=== PATIENT | male | born 1945 | race Caucasian/White ===

== ENCOUNTER 2019-01-22 05:44 | Inpatient (IN) | payer OTHER ==
[2019-01-15 14:28] VITALS: BMI 34.8
[2019-01-22] MEDS ORDERED: MIDAZOLAM HCL 2 MG/2 ML SINGLE DOSE VIAL ONE (06:56)
[2019-01-22] MEDS ORDERED: BUPIVACAINE HCL/PF 0.5% (5 MG/ML) 30 ML VIAL IJ ONE (06:56)
[2019-01-22] MEDS ORDERED: CEFAZOLIN 2 GM/D5W 2 GM/50 ML ML IVPB ONE (07:14)
[2019-01-22] MEDS ORDERED: CELECOXIB 200 MG CAPSULE PO ONE (07:14)
[2019-01-22] MEDS ORDERED: oxyCODONE HCL 10 MG SUSTAINED ACTING TABLET PO ONE (07:14)
[2019-01-22] MEDS ORDERED: TRANEXAMIC ACID 1000 MG/10 ML VIAL IVPUSH ONE (07:15)
[2019-01-22] MEDS ORDERED: BUPIVICAINE 0.25%/MORPH PF/KETOROLAC - 51ML DISP.SYRINGE IA ONE ×2 (07:15→09:26)
[2019-01-22] MEDS ORDERED: PANTOPRAZOLE 40 MG TABLET (FP) PO ONE (07:15)
[2019-01-22] MEDS ORDERED: ceFAZolin SODIUM 1 GM VIAL ONE ×2 (07:20→08:33)
[2019-01-22] MEDS ORDERED: VANCOMYCIN 1,000 MG VIAL (RESTRICTED TO ID ONLY) ONE (07:20)
[2019-01-22] MEDS ORDERED: SUCCINYLCHOLINE CHLORIDE 200 MG/10 ML SYRINGE ONE (07:26)
[2019-01-22] MEDS ORDERED: PROPOFOL 20 ML ONE ×4 (07:26→10:40)
[2019-01-22] MEDS ORDERED: ePHEDrine SULFATE 50 MG/1 ML AMPULE ONE (07:26)
[2019-01-22] MEDS ORDERED: BUPIVACAINE HCL/PF 0.5% (5MG/ML) 10 ML VIAL ONE (07:27)
[2019-01-22] MEDS ORDERED: oxyCODONE HCL 5 MG TABLET PO PRN (07:34)
[2019-01-22] MEDS ORDERED: ACETAMINOPHEN 1000 MG/100 ML VIAL (NON FORMULARY) IVPB ONE ×2 (07:34→11:46)
--- NOTE | 2019-01-22 07:35 | HP ---
Admitting History and Physical - Admission Chief Complaint: right hip osteoarthritis x years History of Present Illness: 73 year old male presents in regard to their right hip. Long-standing history of right hip osteoarthritis. Patient complains of pain, limited range of motion , difficulty ambulating, and difficulty with activities of daily living. Patient has failed conservative treatment options including PO medications, activity modification, injections, and exercise programs. At this point, patient like to proceed with surgical intervention, right total hip arthroplasty MAKOplasty. History Source: Patient - Past Medical History Cardiovascular: Yes: HTN, Hyperlipdemia - Past Surgical History Additional Past Surgical History: See written history & physical. - Smoking History Smoking history: Former smoker Have you smoked in the past 12 months: No If you are a former smoker, when did you quit?: 30 y ago - Alcohol/Substance Use Hx Alcohol Use: Yes (2xweek) Home Medications - Allergies Allergies/Adverse Reactions: Allergies Allergy/AdvReac Type Severity Reaction Status Date / Time No Known Allergies Allergy Verified 01/15/19 14:28 - Home Medications Home Medications: Ambulatory Orders Glucosa Lr 2Kcl/Chondroitin Lr [Glucosamine & Chondroitin Cap] 1 each PO DAILY 01/15/19 Lisinopril/Hydrochlorothiazide [Lisinopril-Hctz 20-25 mg Tab] 1 each PO DAILY Metoprolol Succinate [Toprol Xl -] 200 mg PO DAILY 01/15/19 Multivitamin [Multiple Vitamins] 1 each PO DAILY 01/15/19 Simvastatin [Zocor -] 40 mg PO DAILY 01/15/19 Lisinopril 20 mg PO DAILY 01/22/19 Review of Systems - Review of Systems Musculoskeletal: reports: Decreased ROM (right hip), Joint Pain (right hip) Physical Examination Vital Signs: Vital Signs Temperature 98.6 F 01/22/19 06:49 Pulse Rate 55 L 01/22/19 06:49 Respiratory Rate 16 01/22/19 06:49 Blood Pressure 136/87 01/22/19 06:49 O2 Sat by Pulse Oximetry (%) Constitutional: Yes: Well Nourished, No Distress Eyes: Yes: Conjunctiva Clear HENT: Yes: Atraumatic, Normocephalic Neck: Yes: Supple Cardiovascular: Yes: Regular Rate and Rhythm Respiratory: Yes: Regular Gastrointestinal: Yes: Hemorrhoids ...Rectal Exam: Yes: Deferred Musculoskeletal: Yes: Joint Stiffness (right hip) Assessment/Plan 73 year old male presents in regard to their right hip. Long-standing history of right hip osteoarthritis. Patient complains of pain, limited range of motion , difficulty ambulating, and difficulty with activities of daily living. Patient has failed conservative treatment options including PO medications, activity modification, injections, and exercise programs. At this point, patient like to proceed with surgical intervention, right total hip arthroplasty MAKOplasty. Pros, cons, risks, benefits, and alternatives of a right total hip arthroplasty MAKOplasty were discussed with the patient at length. Patient confirms their understanding and consents to proceed with a right total hip arthroplasty MAKOplasty.
[2019-01-22] MEDS ORDERED: ONDANSETRON 4 MG/2 ML VIAL IVPUSH PRN ×2 (07:40→11:48)
[2019-01-22] MEDS ORDERED: LACTATED RINGERS SOLUTION 1,000 ML IV SCH ×2 (07:45→12:00)
[2019-01-22] MEDS ORDERED: TRANEXAMIC ACID 1000 MG/10 ML VIAL ONE (08:33)
[2019-01-22] MEDS ORDERED: DEXAMETHASONE SOD PHOSPHATE 4 MG/1 ML VIAL ONE (09:03)
[2019-01-22] MEDS ORDERED: ONDANSETRON 4 MG/2 ML VIAL ONE (09:03)
[2019-01-22] MEDS ORDERED: KETOROLAC TROMETHAMINE 30 MG/1 ML VIAL ONE (11:34)
[2019-01-22] MEDS ORDERED: traMADol HCL 50 MG TABLET ONE (11:35)
[2019-01-22] MEDS ORDERED: ACETAMINOPHEN INJECTION 100 ML IVPB ONE (11:35)
[2019-01-22] MEDS: KETOROLAC TROMETHAMINE 30 MG/1 ML VIAL IVPUSH SCH ×3 (11:40→23:39)
--- NOTE | 2019-01-22 11:44 | OP ---
Operative Note - Note: Operative Date: 01/22/19 Pre-Operative Diagnosis: right hip OA Operation: right KOBY YANET Post-Operative Diagnosis: Same as Pre-op Surgeon: Delvis Puente Professor Of Theatre: Carmen Barlow Anesthesia: Spinal Estimated Blood Loss (mls): 200
[2019-01-22] MEDS ORDERED: MAGNESIUM HYDROX 2400MG/30ML ORAL SUSPENSION 30 ML CUP PO PRN (11:48)
[2019-01-22] MEDS ORDERED: MAG HYDROX/AL HYDROX/SIMETH 30 ML UNIT-DOSE CUP PO PRN (11:48)
[2019-01-22] MEDS: traMADol HCL 50 MG TABLET PO SCH ×3 (11:50→23:40)
[2019-01-22] MEDS ORDERED: ACETAMINOPHEN 325 MG TABLET (FP) PO SCH (14:00)
[2019-01-22] MEDS: ACETAMINOPHEN 325 MG TABLET (FP) PO SCH ×2 (17:57→23:41)
[2019-01-22] MEDS: CEFAZOLIN 2 GM/D5W 2 GM/50 ML ML IVPB SCH (17:57)
[2019-01-22] MEDS ORDERED: DEXAMETHASONE SOD PHOSPHATE 10 MG/1 ML VIAL IVPB ONE (20:00)
[2019-01-22] MEDS: oxyCODONE HCL 10 MG SUSTAINED ACTING TABLET PO SCH (21:37)
[2019-01-22] MEDS: ATORVASTATIN CA 20 MG TABLET (FP) PO SCH (21:37)
[2019-01-22] MEDS: SENNOSIDES/DOCUSATE COMBO (SENNA PLUS) TABLET (UD) PO SCH (21:37)
[2019-01-22] MEDS: GABAPENTIN 300 MG CAPSULE (FP) PO SCH (21:37)
[2019-01-22] MEDS: ASCORBIC ACID 500 MG TABLET (FP) PO SCH (21:37)
[2019-01-22] MEDS ORDERED: CELECOXIB 200 MG CAPSULE PO SCH (22:00)
[2019-01-23] MEDS: CEFAZOLIN 2 GM/D5W 2 GM/50 ML ML IVPB SCH (01:25)
[2019-01-23] MEDS: KETOROLAC TROMETHAMINE 30 MG/1 ML VIAL IVPUSH SCH (05:28)
[2019-01-23] MEDS: traMADol HCL 50 MG TABLET PO SCH ×3 (05:28→17:38)
[2019-01-23] MEDS: ACETAMINOPHEN 325 MG TABLET (FP) PO SCH ×3 (05:29→17:39)
[2019-01-23 07:22] LABS: HEMATOCRIT 35.4 % (35.4-49); HEMOGLOBIN 11.9 GM/dl (11.7-16.9); MCH 31.7 pg (25.7-33.7); MCHC 33.6 g/dl (32.0-35.9); MEAN CELL VOLUME 94.5 fl (80-96); MEAN PLT VOLUME 8.7 fl (7.5-11.1); PLATELET COUNT 195 K/MM3 (134-434); RBC 3.74 M/mm3 (4.00-5.60); RDW 11.8 % (11.9-15.9); WHITE BLOOD COUNT 15.3 K/mm3 (4.0-10.8)
[2019-01-23 07:57] LABS: CALCIUM 8.5 mg/dl (8.5-10); CREATININE 2.1 mg/dl (0.55-1.3); POTASSIUM 4.5 mmol/L (3.5-5.1)
[2019-01-23] MEDS: oxyCODONE HCL 5 MG TABLET PO PRN (08:30)
[2019-01-23] MEDS: ASPIRIN 325 MG TABLET PO SCH (08:30)
[2019-01-23] MEDS: GABAPENTIN 300 MG CAPSULE (FP) PO SCH ×2 (09:34→21:35)
[2019-01-23] MEDS: ASCORBIC ACID 500 MG TABLET (FP) PO SCH ×2 (09:35→21:35)
[2019-01-23] MEDS: HYDROCHLOROTHIAZIDE 25 MG TABLET (FP) PO SCH (09:35)
[2019-01-23] MEDS: SENNOSIDES/DOCUSATE COMBO (SENNA PLUS) TABLET (UD) PO SCH ×2 (09:36→21:35)
[2019-01-23] MEDS: oxyCODONE HCL 10 MG SUSTAINED ACTING TABLET PO SCH ×2 (09:36→21:35)
[2019-01-23] MEDS: PANTOPRAZOLE 40 MG TABLET (FP) PO SCH (09:47)
[2019-01-23] MEDS ORDERED: PATIENT'S OWN MEDICATION (NON-FORMULARY) (Lisinopril/Hydrochlorothiazide [Lisinopril-Hctz PO SCH (10:00)
[2019-01-23] MEDS: LISINOPRIL 20 MG TABLET (FP) PO SCH (10:00)
[2019-01-23] MEDS ORDERED: LISINOPRIL 20 MG TABLET (FP) PO SCH (10:00)
[2019-01-23] MEDS: MULTIVITAMINS (DAILY MVI) TABLET (FP) PO SCH (10:00)
--- NOTE | 2019-01-23 12:14 | PN ---
Progress Note (short form) - Note Progress Note: Anesthesia postop note POD#1, S/P Right YANET under spinal and para vertebral block. Pat seen and examined. VSS. PT today. Pain 2-05/31. No apparent post anesthesia complications.
[2019-01-23] MEDS ORDERED: LACTATED RINGERS SOLUTION 1,000 ML IV SCH (12:45)
--- NOTE | 2019-01-23 19:53 | PN ---
Progress Note (short form) - Note Progress Note: Pt seen and examined. Doing well. Walked 1000+ feet. AVSS Selected Entries 01/23/19 01/23/19 01/23/19 05:55 08:17 13:57 Temperature 98.0 F 97.7 F Pulse Rate 68 55 L Respiratory 18 19 Rate Blood Pressure 136/57 L 113/53 L O2 Sat by Pulse 98 97 Oximetry (%) Oxygen Delivery Room Air Room Air Method Laboratory Tests 01/23/19 01/23/19 07:08 07:08 WBC 15.3 H Hgb 11.9 Hct 35.4 Plt Count 195 Sodium 133 L Potassium 4.5 Chloride 100 Carbon Dioxide 22 Anion Gap 11 BUN 37.0 H Creatinine 2.1 H Est GFR (CKD-EPI)AfAm 35.63 Est GFR (CKD-EPI)NonAf 30.74 Random Glucose 189 H Calcium 8.5 Gen: NAD RLE: c/d/i, NVID A/P s/p R KOBY HOLT PT/OOB D/C home in AM
--- NOTE | 2019-01-23 20:03 | DS ---
Physical Examination Vital Signs: Vital Signs Temperature 97.7 F 01/23/19 13:57 Pulse Rate 55 L 01/23/19 13:57 Respiratory Rate 19 01/23/19 13:57 Blood Pressure 113/53 L 01/23/19 13:57 O2 Sat by Pulse Oximetry (%) 97 01/23/19 13:57 Labs: CBC, BMP 01/23/19 07:08 01/23/19 07:08 Discharge Summary Problems reviewed: Yes Reason For Visit: UNILATERAL PRIMARY OSTEOARTHRITIS, RIGHT HIP Current Active Problems Osteoarthritis of right hip (Acute) Procedures: Principal: right KOBY YANET Hospital Course: Admitted for elective surgery. Procedure performed without complications. Pt received postoperative antibiotic prophylaxis and DVT ppx. Ambulated with physical therapy. Stable for discharge home with outpatient followup. Condition: Stable - Instructions Diet, Activity, Other Instructions: Dr Puente - Hip Replacement Instructions Keep the Aquacel dressing on until removed by Dr. Puente in 10-14 days - it is antibacterial and waterproof and you can shower with it on. Call the office for a follow-up appointment with Dr. Puente in 10-14 days. [phone] Take one Aspirin 325mg daily for 6 weeks to prevent blood clots in your legs. Take one Pantoprazole 40mg daily for 6 weeks to protect against heartburn and ulcers. Take Cephalexin (antibiotic) 3x/day for 10 days to help prevent skin infection. Take a multivitamin, stool softener and extra Vitamin C supplement daily. For pain: *Mild pain (1-3/10): Take 1 Tramadol tablet every 4 hours as needed. Moderate pain (4-6/10): Take 1 Tramadol tablet and 1 Percocet tablet every 4 hours as needed. Severe pain (7-10/10): Take 1 Tramadol tablet and 2 Percocet tablets every 4 hours as needed. Activity: You can put as much weight on the operative leg as you want. For the first 6 weeks, all you need to do is walk around the house, go up/down stairs, and sit down/get up. After 6 weeks when everything is healed (and bone has grown into the implant) you will be sent for more intensive outpatient physical therapy. Always use a walker or cane for balance and to prevent falls. Expect to see swelling / bruising from the operative site all the way down to your toes. Wear the Compression stocking on the operative side during the day to minimize how much swelling there is in your foot/ankle. Don't wear the stocking at night. You don't have to wear the stocking on the other side. Disposition: VNS/HOME HEALTH CARE - Home Medications Comprehensive Discharge Medication List: Ambulatory Orders Glucosa Lr 2Kcl/Chondroitin Lr [Glucosamine & Chondroitin Cap] 1 each PO DAILY 01/15/19 Lisinopril/Hydrochlorothiazide [Lisinopril-Hctz 20-25 mg Tab] 1 each PO DAILY Metoprolol Succinate [Toprol XL -] 200 mg PO DAILY 01/15/19 Multivitamin [Multiple Vitamins] 1 each PO DAILY 01/15/19 Simvastatin [Zocor -] 40 mg PO DAILY 01/15/19 Lisinopril 20 mg PO DAILY 01/22/19 Ascorbic Acid [Vitamin C -] 500 mg PO BID tablet 01/23/19 Aspirin [ASA -] 325 mg PO DAILY@0800 tablet 01/23/19 Cephalexin Monohydrate [Keflex -] 500 mg PO TID #30 capsule 01/23/19 Oxycodone HCl/Acetaminophen [Percocet 5-325 mg Tablet] 1 - 2 tab PO Q4H PRN #60 tablet MDD 10 01/23/19 Pantoprazole Sodium [Protonix -] 40 mg PO DAILY #40 tablet.ec 01/23/19 Sennosides/Docusate Sodium [Pericolace -] 2 tablet PO BID tablet 01/23/19 traMADol HCL [Ultram -] 50 mg PO Q4H PRN #42 tablet MDD 6 01/23/19
--- NOTE | 2019-01-23 21:04 | SPEC ---
DATE OF OPERATION: 01/22/2019 PREOPERATIVE DIAGNOSIS: Right hip osteoarthritis. POSTOPERATIVE DIAGNOSIS: Right hip osteoarthritis. PROCEDURE: Right total hip replacement with Makoplasty robotic navigation. ATTENDING: Delvis Puente MD SOCIAL MEDIA DESIGNER: CARLITO Wu ANESTHESIA: Spinal plus sedation. ESTIMATED BLOOD LOSS: 200 mL COMPLICATIONS: None. DISPOSITION: The patient was transferred to the PACU in stable condition. IMPLANTS USED: 1. Zachery Accolade II, size 9 femoral component. 2. Zachery Trident II, 58 mm acetabular component with 40- and 25-mm acetabular screws. 3. MDMA bipolar hip bowl and liner. INDICATIONS: This is 73-year-old male who presents to the office complaining of severe right hip pain. He was seen and examined by Dr. Puente and was diagnosed with severe right hip osteoarthritis. The patient was initially treated conservatively but failed nonoperative management. He was therefore indicated for a right total hip replacement. The risks, benefits and alternatives to the procedure were explained to the patient in great detail and he elected to proceed with the surgery. On the day of surgery, the patient was taken to the operating room and placed on the OR table. Spinal anesthesia was administered by the anesthesiologist. The patient was then positioned in the lateral decubitus position on the table and all bony prominences were padded. An axillary roll was placed. The operative hip was then prepped and draped in the usual sterile fashion and intravenous antibiotics were given for infection prophylaxis. A surgical time-out was then performed with the team, and the patients identity, procedure, side, availability of implants, and the administration of antibiotics were confirmed. An approximately 15-cm longitudinal incision was made through the skin centered on the greater trochanter of the hip. This dissection was carried down through the subcutaneous tissues to the deep fascia. This fascia was then incised and a Cobra was placed around the inferior femoral neck. Electrocautery was used to reflect the anterior 40% of the gluteus medius and minimus starting at the musculotendinous junction and leaving a cuff for closure. This was reflected to reveal the capsule of the hip joint. An anterior capsulectomy was performed and the femoral head and neck were visualized. Grade 4 changes were noted diffusely throughout the joint. At this point, three small stab incisions were made superior to the main incision along the iliac crest. Three self-drilling Steinmann pins were then placed and the Eulogio pelvic array was attached. Reference points on the limb were then entered into the robotic device and the limb length deficiency, offset, and femoral neck resection level were then calculated by the software. The hip was then dislocated with traction and external rotation. An oscillating saw was used to make the femoral neck cut at the level previously templated, and the femoral head was removed. Attention was then turned to the acetabulum. Retractors were then placed around the acetabulum and the labrum was removed. An acetabular checkpoint pin and the Going software were used to register the contours of the acetabulum. The acetabulum was then reamed in a single stage to the preoperatively templated size using the Going robotic arm. The appropriately sized cup was then impacted and had solid fixation as well as the preset inclination and version of 40 and 20 degrees, respectively. A polyethylene liner was then placed in the cup. Attention was then turned back to the femur, which was externally rotated for improved visualization. A femoral neck elevator was used to present the femoral neck cut, a box osteotome was used to enter the femoral canal, and a canal finder was used to go down the femoral shaft. The Eulogio broaches were used sequentially until the optimal scratch fit was achieved. This correlated with the preoperatively templated size. From here, several different offset head and neck configurations were tested until excellent stability and length were obtained. These measurements were quantified using the Going software. All trial components were then removed, the femur was copiously irrigated, and the final components were placed. Leg length and stability were checked again and found to be excellent. Irrigation was performed again. After final implants were placed, a 3-minute dilute Betadine lavage was performed. Following this, the wound was thoroughly irrigated with normal saline via pulsatile lavage and the wound closure was begun. Wound closure was started by repairing the abductor muscles with a no. 2 FiberWire stitch in a Krackow configuration passed through bone tunnels in the greater trochanter and tied over a bony bridge. This repair was then reinforced with a 0 V-Loc 180 barbed suture. Next, no. 1 Polysorb and 0 V-Loc 180 were used to close the fascia. The deep subcutaneous tissue was closed with no. 1 Polysorb sutures, and 2-0 Polysorb was used for the superficial subcutaneous tissue. The skin was closed using both 3-0 V-Loc 90 suture in a running subcuticular fashion and SwiftSet skin adhesive. The Eulogio array and pins were removed from the iliac crest and the stab incision sites were irrigated and closed with 4-0 Polysorb sutures and SwiftSet skin adhesive. Once this was completed, a sterile dressing was applied. The patient was then awakened and taken to the PACU in stable condition. Aurelia [id number]
[2019-01-23] MEDS: ATORVASTATIN CA 20 MG TABLET (FP) PO SCH (21:35)
[2019-01-24] MEDS: oxyCODONE HCL 5 MG TABLET PO PRN (06:30)
[2019-01-24 06:37] VITALS: TEMP 98
[2019-01-24] MEDS: ACETAMINOPHEN 325 MG TABLET (FP) PO SCH ×3 (06:48→12:49)
[2019-01-24] MEDS: traMADol HCL 50 MG TABLET PO SCH ×3 (06:48→12:49)
[2019-01-24 07:57] LABS: HEMATOCRIT 33.3 % (35.4-49); HEMOGLOBIN 11.4 GM/dl (11.7-16.9); MCH 32.7 pg (25.7-33.7); MCHC 34.2 g/dl (32.0-35.9); MEAN CELL VOLUME 95.5 fl (80-96); MEAN PLT VOLUME 9.9 fl (7.5-11.1); PLATELET COUNT 184 K/MM3 (134-434); RBC 3.49 M/mm3 (4.00-5.60); RDW 12.3 % (11.9-15.9); WHITE BLOOD COUNT 13.7 K/mm3 (4.0-10.8)
[2019-01-24 08:18] LABS: CALCIUM 8.6 mg/dl (8.5-10); CREATININE 1.6 mg/dl (0.55-1.3); POTASSIUM 4.6 mmol/L (3.5-5.1)
[2019-01-24] MEDS: oxyCODONE HCL 10 MG SUSTAINED ACTING TABLET PO SCH (09:59)
[2019-01-24] MEDS: PANTOPRAZOLE 40 MG TABLET (FP) PO SCH (10:00)
[2019-01-24] MEDS: ASPIRIN 325 MG TABLET PO SCH (10:00)
[2019-01-24] MEDS: SENNOSIDES/DOCUSATE COMBO (SENNA PLUS) TABLET (UD) PO SCH (10:01)
[2019-01-24] MEDS: HYDROCHLOROTHIAZIDE 25 MG TABLET (FP) PO SCH (10:02)
[2019-01-24] MEDS: GABAPENTIN 300 MG CAPSULE (FP) PO SCH (10:02)
[2019-01-24] MEDS: MULTIVITAMINS (DAILY MVI) TABLET (FP) PO SCH (10:03)
[2019-01-24] MEDS: ASCORBIC ACID 500 MG TABLET (FP) PO SCH (10:03)
[2019-01-24] MEDS: LISINOPRIL 20 MG TABLET (FP) PO SCH (10:08)
[2019-01-24 11:53] VITALS: BP 132/54; PULSE 53
--- NOTE | 2019-01-24 15:20 | PATH ---
Surgical Pathology Report Patient Name: KAYLA COMBS Med. Rec. #: [id number] /Age/Gender: 1945 (Age: 73) / M Account: [id number] Location: [facility] Taken: 01/22/2019 Received: 01/22/2019 Reported: 01/24/2019 Physicians: Delvis Puente M.D. Specimen(s) Received RIGHT FEMORAL HEAD Clinical History Osteoarthritis right hip Final Diagnosis FEMORAL HEAD, RIGHT, TOTAL HIP REPLACEMENT: DEGENERATIVE JOINT DISEASE. Electronically Signed Cailin Robb M.D. Gross Description Received in formalin, labeled "right femoral head," is a 5.3 x 5.0 x 4.2 cm. femoral head with a 1.3 cm in length portion of femoral neck attached. The margin of resection is smooth. There is a 5.0 cm in greatest dimension area of eburnation present. The remaining articular surface is aguero-yellow and diffusely granular. The underlying trabecular bone is yellow and hard. A business process representative section is submitted in one cassette, following decalcification. /01/23/2019 [facility]01/23/2019
== END 2019-01-24 12:45 | disposition home health service (06) | DRG 470 ==
LOC: FM/S 05:44
PROVIDERS: ADMIT Student in an Organized Health Care Education/Training Program; ATTEND Student in an Organized Health Care Education/Training Program
PROC: 8E0W0CZ Robotic Assisted Procedure of Trunk Region, Open Approach (ICD-10-PCS; 2019-01-22)
PROC: 0SR90JZ Replacement of Right Hip Joint with Synthetic Substitute, Open Approach (ICD-10-PCS; principal; 2019-01-22 09:12)
DX: M16.11 Unilateral primary osteoarthritis, right hip (principal); I10 Essential (primary) hypertension; E78.5 Hyperlipidemia, unspecified
CPT/HCPCS: 36415; 73502-TC-RT-FY; 80048; 85027; 88304-TC; 88311-TC; 94760; 97116-GP; 97163-GP; J0131; J1100

== ENCOUNTER 2021-07-26 12:22 | Inpatient (IN) | payer OTHER ==
[2021-07-26 15:40] LABS: BASO % 0.5 % (0-2.0); EOS % 3.7 % (0-4.5); HEMATOCRIT 38.7 % (35.4-49); HEMOGLOBIN 13.2 GM/dL (11.7-16.9); LYMPH % 22.6 % (8-40); MCH 31.5 pg (25.7-33.7); MCHC 34.1 g/dl (32.0-35.9); MEAN CELL VOLUME 92.5 fl (80-96); MEAN PLT VOLUME 9.9 fl (7.5-11.1); MONO % 8.7 % (3.8-10.2); NEUT % 64.5 % (42.8-82.8); PLATELET COUNT 181 10^3/uL (134-434); RBC 4.18 M/mm3 (4.00-5.60)
[2021-07-26 15:47] LABS: INR 1.09 (0.83-1.09); PROTHROMBIN TIME (PATIENT) 12.5 SEC (9.7-13.0)
[2021-07-26 15:49] LABS: ACTIVATED PTT 27.1 SECONDS (25.2-36.5)
[2021-07-26 16:04] LABS: ALBUMIN 4.7 g/dl (3.4-5.0); BLOOD UREA NITROGEN 51.1 mg/dL (7-18); CALCIUM 9.5 mg/dL (8.5-10.1)
[2021-07-26 16:09] LABS: BILIRUBIN,TOTAL 0.7 mg/dL (0.2-1); TOT PROT 7.8 g/dl (6.4-8.2)
[2021-07-26] MEDS ORDERED: HEPARIN NA (PORCINE) 5,000 UNITS/ML 1ML VIAL IVPUSH PRN (16:39)
[2021-07-26] MEDS ORDERED: LACTATED RINGERS SOLUTION 1000 ML INFUS.BAG IV ONE (17:47)
[2021-07-26] MEDS ORDERED: HEPARIN INFUSION - 25,000 UNITS/500 ML INFUS.BAG IVPB ONE (18:03)
[2021-07-26] MEDS: HEPARIN - 25,000 UNIT in SODIUM CHLORIDE 495 ML IV SCH (18:14)
[2021-07-26] MEDS ORDERED: SODIUM CHLORIDE 1,000 ML IV SCH (21:30)
[2021-07-26] MEDS ORDERED: ATORVASTATIN CA 20 MG TABLET (FP) PO SCH (22:00)
[2021-07-27 03:00] VITALS: BMI 33.8
[2021-07-27 08:38] LABS: BASO % 0.5 % (0-2.0); EOS % 6.2 % (0-4.5); HEMATOCRIT 36.3 % (35.4-49); HEMOGLOBIN 12.4 GM/dL (11.7-16.9); LYMPH % 26.8 % (8-40); MCH 31.6 pg (25.7-33.7); MCHC 34.1 g/dl (32.0-35.9); MEAN CELL VOLUME 92.8 fl (80-96); MEAN PLT VOLUME 9.8 fl (7.5-11.1); MONO % 11.1 % (3.8-10.2); NEUT % 55.4 % (42.8-82.8); PLATELET COUNT 156 10^3/uL (134-434); RBC 3.92 M/mm3 (4.00-5.60); WHITE BLOOD COUNT 9.8 K/mm3 (4.0-10.0)
[2021-07-27 09:34] LABS: BLOOD UREA NITROGEN 38.2 mg/dL (7-18); CALCIUM 9.1 mg/dL (8.5-10.1); MAGNESIUM 2.1 mg/dL (1.8-2.4)
[2021-07-27 09:37] LABS: CREATININE 1.4 mg/dL (0.55-1.3); PHOSPHOROUS 3.6 mg/dL (2.5-4.9)
[2021-07-27 09:38] LABS: TOT PROT 6.4 g/dl (6.4-8.2)
[2021-07-27 09:39] LABS: BILIRUBIN,TOTAL 0.9 mg/dL (0.2-1)
[2021-07-27 09:44] LABS: ALBUMIN 3.7 g/dl (3.4-5.0)
[2021-07-27 09:46] LABS: PH,URINE 5.5 (5.0-8.0); URINE APPEARANCE CLEAR; URINE BILIRUBIN NEGATIVE (NEGATIVE); URINE COLOR YELLOW; URINE GLUCOSE (UA) NEGATIVE (NEGATIVE); URINE KETONE NEGATIVE (NEGATIVE); URINE LEUK ESTERASE NEGATIVE (NEGATIVE); URINE NITRITE NEGATIVE (NEGATIVE); URINE PROTEIN NEGATIVE (NEGATIVE); URINE UROBILINOGEN 0.2 mg/dL (0.2-1.0)
[2021-07-27] MEDS ORDERED: HYDROCHLOROTHIAZIDE 25 MG TABLET (FP) PO SCH (10:00)
[2021-07-27] MEDS ORDERED: LISINOPRIL 20 MG TABLET PO SCH (10:00)
[2021-07-27] MEDS: HEPARIN - 25,000 UNIT in SODIUM CHLORIDE 495 ML IV SCH (11:10)
[2021-07-27] MEDS ORDERED: APIXABAN 5 MG TABLET PO SCH (12:30)
[2021-07-27 13:36] VITALS: BP 114/58; PULSE 56; TEMP 97.8
== END 2021-07-27 16:30 | disposition home or self-care (01) | DRG 300 ==
LOC: JER 12:22 → JERBED 17:46 → J7W 22:39
PROVIDERS: ADMIT Internal Medicine; ATTEND Internal Medicine
DX: T81.72XA Complication of vein following a procedure, not elsewhere classified, initial encounter (principal); I82.441 Acute embolism and thrombosis of right tibial vein; I82.431 Acute embolism and thrombosis of right popliteal vein; I82.411 Acute embolism and thrombosis of right femoral vein; N17.9 Acute kidney failure, unspecified; Y83.9 Surgical procedure, unspecified as the cause of abnormal reaction of the patient, or of later complication, without mention of misadventure at the time of the procedure; I12.9 Hypertensive chronic kidney disease with stage 1 through stage 4 chronic kidney disease, or unspecified chronic kidney disease; N18.9 Chronic kidney disease, unspecified; E66.9 Obesity, unspecified; Z68.33 Body mass index [BMI] 33.0-33.9, adult; E78.5 Hyperlipidemia, unspecified
CPT/HCPCS: 0241U-QW; 36415; 76775-TC; 80053; 81003; 82550; 82553; 83735; 83970; 84100; 85025; 85610; 85730; 86850; 86900; 86901; 93005; 93010; 93971-TC; 99285-25; J1644

== ENCOUNTER 2023-08-15 15:17 | Inpatient (IN) | payer OTHER ==
[2023-08-15] MEDS ORDERED: ACETAMINOPHEN INJECTION 100 ML IVPB ONE (18:32)
[2023-08-15] MEDS ORDERED: MAG HYDROX/AL HYDROX/SIMETH 30 ML UNIT-DOSE CUP ONE (18:32)
[2023-08-15] MEDS ORDERED: FAMOTIDINE 20 MG/50 ML IVPB 20 MG/50 ML MG IVPB ONE (18:32)
[2023-08-15] MEDS: ACETAMINOPHEN 1000 MG/100 ML BAG IVPB ONE (18:47)
[2023-08-15] MEDS: MAG HYDROX/AL HYDROX/SIMETH 30 ML UNIT-DOSE CUP PO ONE (18:47)
[2023-08-15] MEDS: FAMOTIDINE 20 MG/50 ML IVPB 20 MG/50 ML MG IVPB ONE (18:47)
[2023-08-15] MEDS: SODIUM CHLORIDE 0.9% 500 ML INFUS.BAG IV ONE ×2 (18:47)
[2023-08-15 18:48] LABS: BASO % 0.2 % (0-2.0); EOS % 0.1 % (0-4.5); HEMATOCRIT 35.6 % (35.4-49); HEMOGLOBIN 11.9 GM/dL (11.7-16.9); LYMPH % 9.5 % (8-40); MCH 31.3 pg (25.7-33.7); MCHC 33.5 g/dl (32.0-35.9); MEAN CELL VOLUME 93.4 fl (80-96); MEAN PLT VOLUME 9.4 fl (7.5-11.1); MONO % 8.6 % (3.8-10.2); NEUT % 81.6 % (42.8-82.8); PLATELET COUNT 156 10^3/uL (134-434); RBC 3.81 M/mm3 (4.00-5.60); RDW 13.5 % (11.9-15.9); WHITE BLOOD COUNT 13.3 K/mm3 (4.0-10.0)
[2023-08-15 19:08] LABS: POTASSIUM 3.9 mmol/L (3.5-5.1)
[2023-08-15 19:11] LABS: ALBUMIN 3.2 g/dl (3.4-5.0); BLOOD UREA NITROGEN 35.1 mg/dL (7-18); MAGNESIUM 2.1 mg/dL (1.8-2.4)
[2023-08-15 19:13] LABS: CREATININE 1.7 mg/dL (0.55-1.3); PHOSPHOROUS 2.7 mg/dL (2.5-4.9)
[2023-08-15 19:14] LABS: INR 1.17 (0.83-1.09); PROTHROMBIN TIME (PATIENT) 13.2 SEC (9.7-13.0)
[2023-08-15 19:15] LABS: BILIRUBIN,TOTAL 2.3 mg/dL (0.2-1); TOT PROT 6.3 g/dl (6.4-8.2)
[2023-08-15 19:17] LABS: ACTIVATED PTT 26.7 SECONDS (25.2-36.5)
[2023-08-15] MEDS ORDERED: PIPERACILLIN/TAZOB 4.5 GM 4.5 GM/100 ML BAG IVPB ONE (21:48)
[2023-08-15] MEDS: PIPERACILLIN/TAZOB 4.5 GM 4.5 GM in DEXTROSE 5%-WATER 100 ML IVPB ONE (21:58)
[2023-08-16] MEDS ORDERED: ACETAMINOPHEN 1000 MG/100 ML BAG IVPB PRN (00:02)
[2023-08-16] MEDS: LACTATED RINGERS SOLUTION 1,000 ML/1,000 ML INFUS.BAG IV SCH ×2 (00:43→14:30)
[2023-08-16] MEDS ORDERED: PIPERACILLIN/TAZOB 3.375 GM 3.375 GM in DEXTROSE 5%-WATER - 50 ML IVPB SCH (02:00)
[2023-08-16] MEDS ORDERED: PIPERACILLIN/TAZOB 3.375 GM 3.375 GM/50 ML BAG IVPB ONE (03:46)
[2023-08-16] MEDS: PIPERACILLIN/TAZOB 3.375 GM 3.375 GM in DEXTROSE 5%-WATER - 50 ML IVPB SCH ×3 (03:54→18:59)
[2023-08-16 07:16] LABS: HEMATOCRIT 34.1 % (35.4-49); HEMOGLOBIN 11.9 GM/dL (11.7-16.9); MCH 32.2 pg (25.7-33.7); MCHC 34.8 g/dl (32.0-35.9); MEAN CELL VOLUME 92.6 fl (80-96); MEAN PLT VOLUME 9.3 fl (7.5-11.1); PLATELET COUNT 154 10^3/uL (134-434); RBC 3.68 M/mm3 (4.00-5.60); RDW 13.6 % (11.9-15.9); WHITE BLOOD COUNT 12.2 K/mm3 (4.0-10.0)
[2023-08-16 07:42] LABS: POTASSIUM 3.7 mmol/L (3.5-5.1)
[2023-08-16 07:47] LABS: ALBUMIN 2.9 g/dl (3.4-5.0); BLOOD UREA NITROGEN 32.3 mg/dL (7-18); CALCIUM 8.2 mg/dL (8.5-10.1)
[2023-08-16 07:48] LABS: BILIRUBIN,TOTAL 2.4 mg/dL (0.2-1)
[2023-08-16 07:49] LABS: TOT PROT 5.9 g/dl (6.4-8.2)
[2023-08-16 07:50] LABS: CREATININE 1.3 mg/dL (0.55-1.3)
[2023-08-16] MEDS ORDERED: ONDANSETRON 4 MG/2 ML VIAL IVPUSH PRN ×2 (10:21→13:18)
[2023-08-16] MEDS ORDERED: FENTANYL CITRATE/PF 50 MCG/ML VIAL IVPUSH PRN ×2 (10:23→13:18)
[2023-08-16] MEDS ORDERED: LACTATED RINGERS SOLUTION 1,000 ML IV SCH (10:30)
[2023-08-16] MEDS ORDERED: PROPOFOL 20 ML ONE (10:46)
[2023-08-16] MEDS ORDERED: ROCURONIUM BROMIDE 50 MG/5 ML SYRINGE ONE (10:47)
[2023-08-16] MEDS: ceFAZolin SODIUM 1 GM VIAL IVPB ONE (11:03)
[2023-08-16] MEDS: LIDOCAINE HCL 1%, 10 MG/ML (20ML VIAL) INF ONE (11:14)
[2023-08-16] MEDS: BUPIVACAINE HCL/PF 0.5% (5MG/ML) 10 ML VIAL IJ ONE (11:14)
[2023-08-16] MEDS ORDERED: HYDROmorphone HCl 2 MG/ML VIAL ONE (12:03)
[2023-08-16] MEDS ORDERED: SUGAMMADEX SODIUM 200 MG/2 ML VIAL ONE (12:09)
[2023-08-16 15:54] VITALS: RESP 18; BMI 30.4
[2023-08-16] MEDS: ACETAMINOPHEN 1000 MG/100 ML BAG IVPB PRN (19:21)
[2023-08-16] MEDS: ATORVASTATIN CA 20 MG TABLET (FP) PO SCH (21:59)
[2023-08-16] MEDS ORDERED: ATORVASTATIN CA 20 MG TABLET (FP) PO SCH (22:00)
[2023-08-17] MEDS: PIPERACILLIN/TAZOB 3.375 GM 3.375 GM in DEXTROSE 5%-WATER - 50 ML IVPB SCH (01:05)
[2023-08-17] MEDS: ACETAMINOPHEN 1000 MG/100 ML BAG IVPB PRN (07:02)
[2023-08-17 08:32] LABS: BASO % 0.1 % (0-2.0); HEMATOCRIT 33.6 % (35.4-49); HEMOGLOBIN 11.3 GM/dL (11.7-16.9); LYMPH % 7.2 % (8-40); MCH 31.7 pg (25.7-33.7); MCHC 33.6 g/dl (32.0-35.9); MEAN CELL VOLUME 94.4 fl (80-96); MEAN PLT VOLUME 9.8 fl (7.5-11.1); MONO % 7.5 % (3.8-10.2); NEUT % 85.2 % (42.8-82.8); PLATELET COUNT 172 10^3/uL (134-434); RBC 3.56 M/mm3 (4.00-5.60); RDW 13.7 % (11.9-15.9); WHITE BLOOD COUNT 10.1 K/mm3 (4.0-10.0)
[2023-08-17 08:35] LABS: POTASSIUM 4.4 mmol/L (3.5-5.1)
[2023-08-17 08:53] LABS: BLOOD UREA NITROGEN 37.5 mg/dL (7-18); CALCIUM 8.8 mg/dL (8.5-10.1); MAGNESIUM 2.4 mg/dL (1.8-2.4)
[2023-08-17 08:55] LABS: CREATININE 1.5 mg/dL (0.55-1.3)
[2023-08-17 08:56] LABS: ALBUMIN 2.6 g/dl (3.4-5.0)
[2023-08-17 08:58] LABS: BILIRUBIN,TOTAL 1.4 mg/dL (0.2-1); TOT PROT 5.5 g/dl (6.4-8.2)
[2023-08-17] MEDS: traMADol HCL 50 MG TABLET PO PRN (14:39)
[2023-08-17] MEDS ORDERED: traMADol HCL 50 MG TABLET PO PRN (17:49)
[2023-08-18 02:55] VITALS: TEMP 98.7
[2023-08-18 07:41] LABS: BASO % 0.2 % (0-2.0); EOS % 0.5 % (0-4.5); HEMATOCRIT 31.2 % (35.4-49); HEMOGLOBIN 10.8 GM/dL (11.7-16.9); LYMPH % 16.3 % (8-40); MCHC 34.7 g/dl (32.0-35.9); MEAN CELL VOLUME 92.3 fl (80-96); MEAN PLT VOLUME 9.1 fl (7.5-11.1); MONO % 8.9 % (3.8-10.2); NEUT % 74.1 % (42.8-82.8); PLATELET COUNT 188 10^3/uL (134-434); RBC 3.38 M/mm3 (4.00-5.60); RDW 13.9 % (11.9-15.9); WHITE BLOOD COUNT 11.2 K/mm3 (4.0-10.0)
[2023-08-18 08:00] LABS: POTASSIUM 3.8 mmol/L (3.5-5.1)
[2023-08-18 08:02] LABS: CALCIUM 8.3 mg/dL (8.5-10.1)
[2023-08-18 08:03] LABS: ALBUMIN 2.5 g/dl (3.4-5.0); BLOOD UREA NITROGEN 33.8 mg/dL (7-18); MAGNESIUM 2.3 mg/dL (1.8-2.4)
[2023-08-18 08:06] LABS: CREATININE 1.4 mg/dL (0.55-1.3)
[2023-08-18 08:07] LABS: BILIRUBIN,TOTAL 0.9 mg/dL (0.2-1); TOT PROT 5.4 g/dl (6.4-8.2)
[2023-08-18 10:42] VITALS: BP 142/69; PULSE 63
== END 2023-08-18 11:50 | disposition home or self-care (01) | DRG 399 ==
LOC: JER 15:17 → JERBED 22:11 → J6S 08-16 14:48
PROVIDERS: ADMIT Internal Medicine; ATTEND Nurse Practitioner Acute Care
PROC: 0DTJ4ZZ Resection of Appendix, Percutaneous Endoscopic Approach (ICD-10-PCS; principal; 2023-08-16 10:30)
DX: K35.33 Acute appendicitis with perforation, localized peritonitis, and gangrene, with abscess (principal); I12.9 Hypertensive chronic kidney disease with stage 1 through stage 4 chronic kidney disease, or unspecified chronic kidney disease; N18.2 Chronic kidney disease, stage 2 (mild); E78.5 Hyperlipidemia, unspecified; Z86.718 Personal history of other venous thrombosis and embolism
CPT/HCPCS: 36415; 71045-TC-FY; 74177-TC; 80053; 82248; 83605; 83690; 83735; 84100; 84484; 85025; 85027; 85610; 85730; 86140; 86803; 86850; 86900; 86901; 87040; 87070; 87075; 87186; 87205; 88304-TC; 94010; 94760; 99285-25; J0131